=== PATIENT | male | born 1940 | race Caucasian/White ===

== ENCOUNTER 2025-05-21 20:43 | Emergency (ER) | payer OTHER ==
[2015-04-01 05:00] VITALS: TEMP 98.8
[~2025-05-21] VITALS: Ht 167.6 cm; Wt 64.1 kg
[~2025-05-21 20:43] MED LIST: AMLO2.5T2 PO; AMOX1TAB16 PO; ASPI-1497 PO; ATOR20TA PO; CLOP-31 PO; LOSA-412 PO
[2025-05-21 21:02] VITALS: O2SAT 97
[2025-05-21 22:47] LABS: BASOPHILS % 0.3 % (0.0-2.0); EOSINOPHILS % 0.1 % (0.0-5.0); HEMATOCRIT. 41.1 % (42.0-52.0); HEMOGLOBIN. 13.7 g/dL (14.0-18.0); LYMPHOCYTES % 18.1 % (20.0-50.0); MEAN PLATELET VOLUME 8.3 fl (7.4-10.4); MONOCYTES % 6.0 % (2.0-8.0); NEUTROPHILS % 75.5 % (40.0-76.0); PLATELET 273 x1000/uL (130-400); RED BLOOD CELL COUNT 4.07 mill/uL (4.7-6.1); RED CELL DISTRIBUTION WIDTH 13.8 % (11.6-14.6)
[2025-05-21 23:01] LABS: CREATININE 1.7 mg/dL (0.6-1.3)
[2025-05-21 23:02] LABS: UREA NITROGEN BLOOD 34 mg/dL (9-23)
[2025-05-21 23:03] LABS: ASPARTATE AMINOTRANSFERASE 48 IU/L (<34); BILIRUBIN DIRECT 0.2 mg/dL (<=3.0)
[2025-05-21 23:04] LABS: BILIRUBIN TOTAL 0.6 mg/dL (0.1-1.0); PROTEIN TOTAL 7.4 g/dL (6.0-8.3)
[2025-05-21] MEDS: SODIUM CHLORIDE 0.9% 1,000 ML IV ONE (23:30)
[2025-05-21] MEDS: MAGNESIUM HYDROXIDE 400MG/5ML 30ML UDC PO ONE (23:30)
[2025-05-21] MEDS: LACTULOSE 20G/30ML UDC PO ONE (23:30)
[2025-05-22] MEDS ORDERED: SENN-362 MT (01:48)
[2025-05-22 02:07] VITALS: BP 151/77; PULSE 60; RESP 20; TEMP 36.7; O2SAT 100
== END 2025-05-22 04:28 | disposition home or self-care (01) ==
LOC: ER 20:43
DX: R10.84 Generalized abdominal pain (principal); Z98.890 Other specified postprocedural states; I10 Essential (primary) hypertension; J45.909 Unspecified asthma, uncomplicated; N28.9 Disorder of kidney and ureter, unspecified; Z79.899 Other long term (current) drug therapy; Z79.82 Long term (current) use of aspirin
CPT/HCPCS: 99284; 74176; 96360; 80076; 80048; 83690; 85025; 36415; J7030